=== PATIENT | male | born 1985 | race Caucasian/White ===

== ENCOUNTER 2016-05-22 07:48 | Day surgery (SDC) | payer OTHER ==
[2016-05-15 10:14] LABS: APPEARANCE,URINE CLEAR; BILIRUBIN,URINE NEGATIVE (NEGATIVE); GLUCOSE, URINE NEGATIVE (NEGATIVE); KETONES,URINE NEGATIVE (NEGATIVE); LEUKOCYTE ESTERASE,URINE NEGATIVE (NEGATIVE); NITRITE,URINE NEGATIVE (NEGATIVE); PROTEIN,URINE NEGATIVE (NEGATIVE); UROBILINOGEN,URINE NEGATIVE mg/dL (<2.0)
[2016-05-15 10:19] LABS: HEMATOCRIT 44.6 % (37.9-51.0); HEMOGLOBIN 14.8 g/dL (13.5-17.0); HGB HCT DIFFERENCE -0.2; MEAN CORPUSCULAR HEMOGLOBIN 29.2 pg (27.0-33.4); MEAN CORPUSCULAR HGB CONC 33.3 g/dL (32.0-36.0); MEAN CORPUSCULAR VOLUME 88 fl (80-97); RED BLOOD COUNT 5.07 10^6/uL (4.35-5.55); WHITE BLOOD COUNT 6.4 10^3/uL (4.0-10.5)
[2016-05-15 10:52] LABS: ANION GAP 10 (5-19); BLOOD UREA NITROGEN 13 mg/dL (7-20); CALCIUM 9.4 mg/dL (8.4-10.2); CARBON DIOXIDE 30 mmol/L (22-30); CHLORIDE 102 mmol/L (98-107); CREATININE RESULT 0.97 mg/dL (0.52-1.25); GLUCOSE 95 mg/dL (75-110); POTASSIUM 4.5 mmol/L (3.6-5.0); SODIUM 142.1 mmol/L (137-145)
[~2016-05-22 07:48] MED LIST: BUPIVACAINE HCL 0.5 % INJ/PF 30 ML SDV ONE; CLINDAMYCIN 600 MG/D5W RTU 600 MG/50 ML RTUPB IV PRN; LACTATED RINGERS 1000 ML IV PRN; LIDOCAINE 0.5% INJ-PF (5 MG/ML) 50 ML SDV SUBCUT PRN
[2016-05-22] MEDS ORDERED: FENTANYL CITRATE INJ/PF 250 MCG/5 ML AMPULE ONE (09:33)
[2016-05-22] MEDS ORDERED: PROPOFOL INJ 200 MG/20 ML VIAL IV ONE (09:33)
[2016-05-22] MEDS ORDERED: MIDAZOLAM 2 MG/2 ML INJ ONE (09:33)
[2016-05-22] MEDS ORDERED: MORPHINE SULFATE 10 MG/ML INJ ONE (09:34)
[2016-05-22] MEDS ORDERED: ACETAMINOPHEN 100 ML IV ONE (09:34)
[2016-05-22] MEDS ORDERED: MEPERIDINE HCL/PF INJ 25 MG/1 ML DISP.SYRIN IV PRN (11:08)
[2016-05-22] MEDS ORDERED: DIPHENHYDRAMINE HCL 50 MG/ML VIAL IV PRN (11:08)
[2016-05-22] MEDS ORDERED: OXYCODONE-ACETAMINOPHEN 5-325 MG TABLET PO PRN ×3 (11:08→13:20)
[2016-05-22] MEDS ORDERED: FENTANYL CITRATE INJ/PF 100 MCG/2 ML AMPUL IV PRN ×3 (11:08)
[2016-05-22] MEDS ORDERED: MORPHINE SULFATE 10 MG/ML INJ IV PRN ×2 (11:08→13:20)
[2016-05-22] MEDS ORDERED: PROMETHAZINE HCL INJ 25 MG/1 ML VIAL IV PRN ×2 (11:08)
[2016-05-22] MEDS ORDERED: ONDANSETRON HCL INJ/PF 4 MG/2 ML SDV IV PRN (13:20)
--- NOTE | 2016-05-22 13:21 | PDOC DISCHARGE SUMMARY ---
Discharge Summary (SDC) - Discharge Final Diagnosis: Left Scapholunate Dissociation Date of Surgery: 05/22/16 Discharge Date: 05/22/16 Treatment or Instructions: Schedule Follow Up w/ Dr. Bert Mitchell @ [facility] to be seen in 10-14 days or as scheduled [place]: [place]: [place]: Keep splint clean/dry/intact. Ice and elevate May begin finger range of motion attempting to make full fist. Stool softener of choice when on pain medication. Prescriptions: Oxycodone HCl/Acetaminophen [Percocet 5-325 mg Tablet] 1 - 2 tab PO ASDIR PRN # 55 tablet PRN Reason: Referrals: EARNESTINE BARAHONA DO [Primary Care Provider] - Respiratory Treatments at Home: Deep Breathing/Coughing Discharge Activity: No Lifting Over 10 Pounds, No Lifting/Push/Pulling Report the Following to Your Physician Immediately: Increase in Pain, Fever over 101 Degrees, Unusual Bleeding, Swelling, Warmth, Increased Soreness, Numbness, Tingling Sensation
--- NOTE | 2016-05-22 13:33 | Operative Report ---
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 Patient subsequently underwent scapholunate ligament repair initially patient had been doing well until he felt a pop in therapy and radiographs demonstrated recurrence of the scapholunate disassociation. At that point we discussed treatment options including observation versus operative intervention which would include scapholunate reconstruction utilizing FCR tendon. Risk and benefits were explained, patient verbalized understanding and consented for the procedure. Procedure In Detail: Patient was seen and evaluated in the preoperative holding area. The RIGHT upper extremity was initialized and marked. Patient received 2g of Ancef IV for bacterial prophylaxis. Patient was taken back to the operative room where transferred to the operative table and placed under general anesthesia. Once they were adequately anesthetized a nonsterile tourniquet was placed on the upper extremity. A surgical team debriefing was performed ensuring all instrumentation was available, the surgical procedure was discussed with possible concerns reviewed. The upper extremity was prepped with chlorhexidine and alcohol and draped in a sterile fashion. A timeout was done identifying correct patient, procedure and extremity everyone in attendance agree with this and verbalized no concerns. The extremity was exsanguinated the tourniquet was inflated to 200 mmHg. Patient was placed in a Acumed arthroscopy tower with 15 pounds of traction. A 3-4 portal incision was made the arthroscope was introduced into the radiocarpal joint. There was evidence of fraying but no degenerative changes of the radiocarpal articulation. There was complete disruption of the scapholunate ligament with notable widening of the scapholunate interval. Given the fact patient will require open procedure no further arthroscopy was performed. Patient's previous longitudinal skin incision was utilized just ulnar to Prema' s tubercle. The EPL tendon was once again identified. I carefully elevated the fourth and second dorsal compartments exposing underlying capsule. There is no disruption of the previous capsulodesis a Martin type capsulotomy was then made leaving appropriate amount of radial triquetral ligament remaining for triligamentous tenodesis. The radial carpal articulation was then exposed demonstrating complete disruption of the scapholunate ligament as confirmed with arthroscopy. Chondrodesis was performed between the scapholunate interval to promote healing. I now proceeded with placement of my tunnel within the scaphoid. A K wire was passed along the center-center portion of the scaphoid beginning just 2 mm radial to the scapholunate insertion point and along the scaphoid tubercle volarly. C-arm fluoroscopy was then obtained confirming appropriate placement of the K wire. The K wire was then continued more volarly and a Chevron-type skin incision was made over the scaphoid tubercle. Careful blunt dissection was performed through the thenar musculature down to the scaphoid tubercle. Once the exit point was visualized. A 2.7 mm cannulated drill was passed dorsally to volarly. I then passed a 3.5 mm noncannulated drill widening the hole proximally and distally. I then proceeded with harvesting my autograft. 2 transverse skin incisions were made overlying the FCR tendon. The tendon was identified proximally and distally. Utilizing a tendon passer the volar one third of the tendon was then harvested obtaining 11 mm of graft. The FCR tendon was identified at the scaphoid tubercle and the FCR tunnel was released however the attachments within the trapezium were maintained. I then passed a suture passer from dorsally to volarly through the scaphoid and successfully pass the FCR tendon. A 0.62 K wire was used as a joystick within the lunate successfully reducing the scapholunate interval to a neutral scapholunate angle and moravian of the alignment of the scapholunate without residual gapping. A skin incision was made radially and the superficial radial nerve was identified and retracted. A 0.62 K wire was placed past the scapholunate interval and a second diverging 0.62 K wire was placed at the scapholunate interval. Finally a third 0.62 K wire was placed across the scaphoid capitate interval while placing the K wires reduction was maintained and my surgical supplies sterilizer maintained tension on the FCR tendon to avoid impingement. A small trough was then placed into the lunate and a 2.4 mm Arthrex bio suture tack was secured into position. A small longitudinal incision was made into the ulnar aspect of the radial triquetral ligament and the FCR tendon past through the slit maximum tension was placed by my audiology assistant on the FCR tendon in a horizontal mattress suture was utilized obtaining fixation into the dorsal lunate. This was then reinforced back onto itself with additional 3-0 Ethibond sutures. Final C-arm fluoroscopy was obtained demonstrating moravian of scapholunate angle on lateral view with no residual scapholunate gapping and appropriate placement of my 0.62 K wires. Capsulotomy incision was closed with interrupted 3-0 Ethibond securing a portion of the capsule to the underlying tendon graft re-creating the natural attachments of the DIC and DRC. The wound was then copiously irrigated with normal saline. The tourniquet was deflated. Any peripheral vasculature was carefully coagulated with bipolar cautery until the wounds were dry. The volar incisions were closed with subcuticular 4-0 Monocryl reinforced with Dermabond and Steri-Strips. The dorsal longitudinal skin incision was closed with 4-0 Monocryl subcutaneous and a running 4-0 Monocryl subcuticular stitch. This was also reinforced with Dermabond and Steri-Strips. 20 mL of 0.5% Marcaine without epinephrine was injected for postoperative pain control. Wound was dressed with 4 x 4's and soft roll. Patient was placed in a well-padded loosely applied 3 x 15 plaster splint. Sponge counts, instrument counts, needle counts counts were correct. Patient was then awoken from anesthesia. Transferred from the operating room table to the operating room stretcher. There was no intraoperative complications patient tolerated procedure well stable to PACU. Postoperative plan: Patient will continue the postoperative splint for 2 weeks. At his two-week follow-up appointment he will placed in the cast which he will continue for 4 weeks. At 4 weeks he will be switched out into another cast for a total time of mobilization of 10 weeks. At 10 weeks postoperatively we will set him up for pin removal. Return the plate will be approximate 6-9 months.
[2016-05-22] MEDS ORDERED: ONDANSETRON HCL INJ/PF 4 MG/2 ML SDV ONE ×2 (13:58→14:32)
[2016-05-22] MEDS ORDERED: LIDOCAINE 2% INJ-PF (20 MG/ML) 10 ML AMPUL ONE (14:32)
[2016-05-22] MEDS ORDERED: SUCCINYLCHOLINE CHLORIDE INJ 200 MG/10 ML VIAL ONE (14:32)
[2016-05-22] MEDS ORDERED: GLYCOPYRROLATE INJ 0.4 MG/2 ML VIAL ONE (14:32)
[2016-05-22] MEDS ORDERED: METOCLOPRAMIDE HCL INJ/PF 10 MG/2 ML SDV ONE (14:32)
[2016-05-22 16:14] VITALS: BP 118/78
== END 2016-05-22 15:40 | disposition home or self-care (01) ==
LOC: OROUT 07:48
PROVIDERS: ATTEND Orthopaedic Surgery
PROC: 0MQ60ZZ Repair Left Wrist Bursa and Ligament, Open Approach (ICD-10-PCS; 2016-05-22)
PROC: 0RJP4ZZ Inspection of Left Wrist Joint, Percutaneous Endoscopic Approach (ICD-10-PCS; principal; 2016-05-22 09:45)
DX: S63.592A Other specified sprain of left wrist, initial encounter (principal); X58.XXXA Exposure to other specified factors, initial encounter; M25.332 Other instability, left wrist; Z88.0 Allergy status to penicillin
CPT/HCPCS: 36415; 85027; 80048; 81001; 73100; 29840; 25320; C1713 ×2; J2250; J3010; J2765; J2270; J0330; J2405; J2704; J3490; J0131; 01830